=== PATIENT | male | born 1955 | race African-American/Black ===

== ENCOUNTER 2019-08-30 14:28 | Outpatient (CLI) | payer OTHER, MEDICARE, SELFPAY ==
--- NOTE | ~2019-08-30 | XR_ITS ---
EXAMINATION: XR barium swallow modified DATE: 08/30/2019 15:15 INDICATION: Dysphagia. TECHNIQUE: The patient was given barium-containing material of multiple consistencies to swallow by t yanni speech pathologist while I performed fluoroscopy. Fluoroscopy exposure time was 2.3 minutes. The n umber of fluoroscopy images saved to the PACS was 1. Dose-area product was 2.69 Gy-cm^2. FINDINGS: There was intermittent flash laryngeal penetration. No aspiration. IMPRESSION: 1. Intermittent flash laryngeal penetration. No aspiration. 2. Please refer to the speech therapy report for recommendations. Reviewed, dictated and finalized at location A. E MANAGER
--- NOTE | 2019-08-30 16:30 | STOPEVAL ---
MODIFIED BARIUM SWALLOW EVALUATION: Thank you for referring this patient to [facility] [place]. Admitting Provider: Attending Provider: German Jara MD Referring Provider: CLEMENT Outpatient Evaluation Start: 08/30/19 16:07 Freq: Status: Active Protocol: Document 08/30/19 15:08 BECHERERT (Rec: 08/30/19 16:30 BECHERERT [id number]) Therapy Assessment Status Assessment Status Assessment Status Evaluation Outpatient Past Medical History Neurological History Hx Other Neurological Disorders Yes: TBI 12/2018 Respiratory History Hx Tracheostomy Yes: pt removed 08-26-2019 Gastrointestinal History Hx Other Gastrointestinal Disorders Yes: PEG tube r/t TBI Evaluation Information Problem Diagnosis dysphagia r/t TBI Onset 12/2018 Additional Evaluation Detail Reportedly, pt suffered a TBI (via fall) in December of 2018. Pt was subsequently in a coma for 4 months & vent 6-8 weeks. Pt had tracheostomy until 08-25. Pt still has PEG tube. Pt recurrently resides in a NH. Pain Assessment Timing of Pain Assessment Timing of Pain Assessment Assessment Pain Scale Pain Scale Used Bay-Rodriguez (FACES) Bay-Rodriguez Bay-Frias Pain Scale No Pain Pain Score Pain Score No Pain: Bay Frias Modified Barium Swallow Evaluation Recent Swallowing History Reports Dysphagia Yes: NPO since TBI Duration of Dysphagia 7-8 months Other Related History tracheostomy removed by pt 08-25 History of Pneumonia No Reported Difficult Consistencies Unable to Identify Intake Method Prior to Swallow Gastrostomy,NPO Evaluation Dentition Comments missing teeth Consistency Thin Uncontrolled 2 Method of Presentation Straw Oral Preparatory Symptoms Within Functional Limits Oral Phase Symptoms Within Functional Limits Pharyngeal Phase Symptoms Within Functional Limits Severity of Vallecular Residue None - 0% No Residue Severity of Pyriform Sinus Residue None - 0% No Residue 8 Point Laryngeal Penetration-Aspiration Material Enters the Airway, Scale Remains Above Vocal Folds, is Ejected Cervical/Esophageal Symptoms Within Functional Limits Thin Uncontrolled 1 Method of Presentation Cup Oral Preparatory Symptoms Within Functional Limits Oral Phase Symptoms Within Functional Limits Oral Phase Comments took large amount; swallowed in two portions Pharyngeal Phase Symptoms Within Functional Limits Severity of Vallecular Residue None - 0% No Residue Severity of Pyr
== END 2019-08-30 14:29 | disposition home or self-care (01) ==
LOC: ANHIMG 14:45
PROVIDERS: PCP Family Medicine; Visit Provider Family Medicine
DX: J96.00 Acute respiratory failure, unspecified whether with hypoxia or hypercapnia (principal); R13.12 Dysphagia, oropharyngeal phase; S06.5X9D Traumatic subdural hemorrhage with loss of consciousness of unspecified duration, subsequent encounter
CPT/HCPCS: 92611

== ENCOUNTER 2019-12-23 12:57 | Inpatient (IN) | payer MEDICARE, MEDICAID, SELFPAY ==
[2019-12-23] VITALS (46 sets, daily range): BP systolic 60–112; BP diastolic 28–94; PULSE 30–82; RESP 13–24; TEMP 30.6–35; O2SAT 95–100; BMI 26.9
--- NOTE | 2019-12-23 | ECG_ITS ---
Measurements Intervals [place] Rate: 32 P: 24 W[place]: 265 QRS: -9 QRSD: 110 T: -3 QT: 528 QTc: 387 Interpretive Statements SINUS OR ECTOPIC ATRIAL BRADYCARDIA WITH FIRST DEGREE AV BLOCK BORDERLINE T WAVE ABNORMALITY- INFERIOR LEADS BASELINE ARTIFACT- V3-V5 ABNORMAL ECG Electronically Signed On 12-23-2019 17:07:38 CDT by Velasquez Palomino D.O.
--- NOTE | ~2019-12-23 | XR_ITS ---
EXAMINATION: XR chest 1V portable DATE: 12/24/2019 06:21 INDICATION: Shock TECHNIQUE: frontal view of the chest was obtained. COMPARISON: Chest radiograph dated 12/23/2019 FINDINGS: Catheter projecting over the right neck, chest and upper abdomen likely representing a ventriculoperi toneal shunt. Likely transvenous pacemaker extending cephalad along the inferior vena cava with dista l tip projecting over the apex of the right ventricle. Opacities in the left lower lung zone which could represent atelectasis and/or pneumonia. No pleural effusion or pneumothorax. Cardiomediastinal silhouette is within normal limits for AP technique. Nayeli ral old right rib fractures. IMPRESSION: 1. Opacities in the left lower lung zone which could represent atelectasis and/or pneumonia. Reviewed, dictated and finalized at location A. IMPRESSION: 1. Opacities in the left lower lung zone which could represent atelectasis and/ or pneumonia.
--- NOTE | ~2019-12-23 | CT_ITS ---
EXAMINATION: CTA brain carotid DATE: 12/23/2019 17:28 INDICATION: Confusion, right-sided neurologic deficit, history of subdural hematoma TECHNIQUE: Computed tomographic angiography (CTA) of the head was performed with 100 mL Omnipaque-350 intravenous contrast. CTA of the neck was performed with intravenous contrast. The dose-length produ ct was 1156.54 mGy-cm. Maximum intensity projection and volume rendered 3D-reconstructions were creat ed by the technologist on a separate workstation. Automated exposure control and iterative reconstruc tion technique were employed. COMPARISON: None. FINDINGS: HEAD CTA: Again noted are changes of prior left craniotomy with a large area of adjacent encephalomal acia involving the left frontal lobe. A right occipital ventriculostomy ends with its tip in the ante rior horn of the right lateral ventricle. There is no intracranial hemorrhage, acute infarction, or a bnormal mass lesion. There is unchanged mild enlargement of the ventricles. There is no abnormal mass effect or midline shift. The basal cisterns are patent. The orbits are normal. The paranasal sinuses , mastoids and calvarium are normal. There is no significant stenosis of the basilar artery or posterior cerebral arteries. There is no si gnificant stenosis of the intracranial internal carotid arteries or the anterior or middle cerebral a rteries. There is expected decreased perfusion in the left frontal lobe in the region of encephalomal acia. The anterior communicating artery and posterior communicating arteries are normal. There is no aneurysm. NECK CTA: There is an 8 mm nodule of the right thyroid lobe. The submandibular and parotid glands are symmetric. There is no lymphadenopathy. There are no masses identified. The vasculature is patent. T he airway is unremarkable. There are no osseous abnormalities. The orbits are unremarkable. The super ior mediastinum is unremarkable. There is 0% stenosis of the proximal right internal carotid artery relative to normal distal artery l umen diameter (NASCET criteria). There is 0% stenosis of the proximal left internal carotid artery re lative to normal distal artery lumen diameter. IMPRESSION: 1. No acute intracranial abnormality. Expected decreased perfusion in the site of left frontal lobe e ncephalomalacia, otherwise normal head CTA. 2. 0% stenosis of the proximal right internal carotid artery relative to normal distal artery lumen d iameter (NASCET criteria). 3. 0% stenosis of the proximal left internal carotid artery relative to normal distal artery lumen di ameter. Reviewed, dictated and finalized at location A. IMPRESSION: 1. No acute intracranial abnormality. Expected decreased perfusion in the site of left frontal lobe encephalomalacia, otherwise normal head CTA. 2. 0% stenosis of the proximal right internal carotid artery relative to normal distal artery lumen diameter (NASCET criteria). 3. 0% stenosis of the proximal left internal carotid artery relative to normal distal artery lumen diameter.
--- NOTE | ~2019-12-23 | US_ITS ---
EXAMINATION: US right upper quadrant EXAM DATE: 12/24/2019 09:06 INDICATION: Elevated liver function tests. TECHNIQUE: Multiple grayscale and Doppler images of the abdomen right upper quadrant were obtained (sandra y a technologist who performed the scan) and subsequently reviewed. There is no prior study for philip fitzpatrick. FINDINGS: The pancreatic head and body are normal in appearance. The pancreatic tail is not visualized. The l iver has normal echogenicity and contour. There are no focal liver lesions identified. There is no evidence of intrahepatic biliary duct dilation. Portal venous flow was seen in the hepatopedal, nor mal direction and has normal Doppler waveform. No right-sided hydronephrosis. Common bile duct measures 4 mm, which is normal. Gallbladder is not identified. IMPRESSION: Unremarkable abdominal ultrasound exam. Reviewed, dictated and finalized at location B.
--- NOTE | ~2019-12-23 | CT_ITS ---
EXAMINATION: CT brain wo con EXAM DATE: 12/23/2019 13:23 INDICATION: Confusion. Stroke protocol. TECHNIQUE: Spiral CT of the head was performed without contrast. Axial, coronal and sagittal images were reviewed. The dose-length product (DLP) for this examination was 681.00 mGy-cm. The exposure w as tailored according to patient size, and iterative reconstruction (ASIR) was used as additional dos e reduction technique. There is no prior study for comparison. FINDINGS: There is large old left sided craniotomy large region of underlying left frontal encephalom alacia from prior injury. There is a right-sided ventricular shunt. Ventricles are mildly dilated out of proportion to sulci, probably from atrophy. No obstructive hydrocephalus suspected. Mild to moder ate microangiopathy. No acute intracranial hemorrhage or extra-axial collections. No CT evidence of a cute stroke. IMPRESSION: 1. No acute intracranial findings. 2. Surgical changes, ventricular shunt. 3. Microangiopathy and atrophy. As per stroke protocol, I called these results to emergency room, discussed with Gertrude Sims MD at 12/23/2019 13:28 CDT . Reviewed, dictated and finalized at location A. IMPRESSION: 1. No acute intracranial findings. 2. Surgical changes, ventricular shunt. 3. Microangiopathy and atrophy. As per stroke protocol, I called these results to emergency room, discussed wit h Gertrude Sims MD at 12/23/2019 13:28 CDT .
--- NOTE | ~2019-12-23 | XR_ITS ---
EXAMINATION: XR chest 1V portable EXAM DATE: 12/23/2019 13:53 INDICATION: Confusion. TECHNIQUE: Portable AP frontal chest x-ray was obtained. There is no prior study for comparison. FINDINGS: The cardiomediastinal silhouette is prominent but magnified on this AP technique. There is pulmonary vascular congestion. No confluent consolidation, pneumothorax or pleural effusion suspected . Difficult to exclude small amount of basilar airspace disease. There are bony degenerative changes . IMPRESSION: No confluent consolidation but difficult to exclude small amount of basilar airspace dis ease. Reviewed, dictated and finalized at location A. IMPRESSION: No confluent consolidation but difficult to exclude small amount o f basilar airspace disease.
[2019-12-23] MEDS: SODIUM CHLORIDE 0.9% IV 1,000 ML 999 ML IV CONT (12:50)
--- NOTE | 2019-12-23 13:08 | ED.NEUROSD ---
HPI - Neuro Symptoms/Deficit General Chief Complaint: Suspected CVA Stated Complaint: code cva Source: EMS Mode of arrival: EMS Limitations: language barrier History of Present Illness HPI Narrative: Patient is a 64-year-old male with a history of traumatic subdural hematoma currently residing at [facility] who was sent to our emergency department today for evaluation of altered mental status. Patient reportedly was noted to have right-sided facial droop, arm weakness and less expressive than normal has noticed by staff at approximately 10 in the morning. Unknown if symptoms occurred at 10 AM or prior to 10 AM. EMS responded to a stroke page out, at the time of arrival to the facility to evaluate the patient, he was bradycardic in the 30s and. Patient had right-sided facial droop, left gaze deviation without any active tracking and was unable to follow commands. Patient unable to provide any history at baseline due to expressive aphasia. Patient was given 2 0.5 mg doses of atropine without improvement in the bradycardia. Per directions over the phone, I instructed them to start external pacing on the patient. When he arrived here he is alert, awake, there is right-sided facial droop, right-sided arm weakness, and gaze deviation to the left. Additional history unable to be obtained from the patient due to mental status. Related Data Allergies Allergy/AdvReac Type Severity Reaction Status Date / Time No Known Allergies Allergy Verified 12/23/19 13:16 Review of Systems Review of Systems: Narrative: Unable to obtain secondary to medical condition, mental status PMFSH Past Medical History Medical History (Updated 12/23/19 @ 19:01 by Gertrude Sims MD) Expressive aphasia Hypertension Seizure Traumatic subdural hematoma Surgical History Surgical History (Updated 12/23/19 @ 16:17 by Nae Campbell MD) History of tracheostomy Family History Family History (Updated 12/23/19 @ 15:04 by Nae Campbell MD) Mother Pacemaker Social History Social History (Updated 12/23/19 @ 15:04 by Nae Campbell MD) Social History: Lives in a IN since his traumatic brain injury Smoking status: Smoker, status unknown Alcohol intake: unknown Substance use: unknown Gender identity (if verbalized by the patient): Male Exam Narrative: Exam Narrative: GENERAL: Awake, alert, left gaze deviation HEAD: Traumatic craniotomy scar, right-sided facial droop EYES:2+ PERRLA, left gaze deviation, does not cross midline ENT: Nares clear, no rhinorrhea or epistaxis. Mucous membranes moist. NECK: Supple. CHEST: No respiratory distress, breathing even and non labored HEART: Bradycardic rate ABDOMEN:Non distended, non tender EXTREMITIES: No spontaneous movement in the right upper extremity, right lower extremity SKIN: Warm, dry, no rash. NEURO: Right-sided facial droop, left gaze deviation that does not cross midline. Patient is unable to follow simple commands. Left arm does resist gravity. Minimal movement in the left lower extremity. 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 Course Vital Signs Vital signs: Vital Signs Pulse Rate 38 L 12/23/19 12:57 Respiratory Rate 18 12/23/19 12:57 Blood Pressure 112/94 H 12/23/19 12:57 Pulse Oximetry 100 12/23/19 12:57 Temperature 31.8 C L 12/23/19 18:22 Pulse Rate 82 12/23/19 18:22 Respiratory Rate 13 12/23/19 18:22 Blood Pressure 81/63 L 12/23/19 18:22 Pulse Oximetry 99 12/23/19 18:22 Transfer Transfered to: [facility] Hospital Transportation: ALS Transfer rationale: SPecialty unavailable, continuity of care Accepting physician: MD Solitario MDM - Neuro Symptoms/Deficit MDM Narrative Medical decision making narrative: Patient presented via EMS for evaluation of altered mental status, possible CVA. Patient with new, worsening right-sided facial droop. Patient at baseline has expressive aphasia, minimally co
--- NOTE | 2019-12-23 13:10 | PC.NURSE ---
Pacer settings 100 miliamps at 80 bpm per EDP via verbal order readback Per verbal order readback from EDP start dopamine drip at 2mcg/min
[2019-12-23] MEDS: DOPamine 400 MG/D5W 250 ML 400 MG/250 ML BAG 6.7 MG IV CONT (13:23)
[2019-12-23 13:32] LABS: Base Excess ABG -2.1 mEq/l (+/-2.0); Carboxyhemoglobin 0.4 % THb (0-2.0); Device NASAL CANNULA; Fractional Inspired Oxygen 36 %; HCO3 ABG 23.5 mEq/l (22.0-26.0); Methemoglobin ABG 0.3 %THb (0-1.5); Modified Allen's Test Pass; Oxygen Saturation ABG 99.2 % (95.0-100.0); Oxyhemoglobin 98.1 % THb (90.0-100.0); PCO2 ABG 43.1 mmHg (35.0-45.0); PO2 ABG 182.7 mmHg (80.0-100.0); PO2 FiO2 Ratio Arterial Blood 5.07 %; Reduced Hemoglobin 1.2 %THb (0-5.0); Site Drawn RIGHT RADIAL; Total Hemoglobin 13.5 g/dL (12.0-18.0); pH ABG 7.354 (7.350-7.450)
[2019-12-23 14:04] LABS: Basophils Percent Auto 0.3 % (0.2-1.2); Eosinophils Percent Auto 1.1 % (0-4.4); Hematocrit 37.2 % (42.0-52.0); Hemoglobin 12.3 g/dL (14.0-18.0); Immature Platelet Fraction Pct 11.4 % (0.9-11.2); Lymphocytes Absolute Auto 0.66 K/mm3 (0.9-3.2); Lymphocytes Percent Auto 18.7 % (18.3-44.2); Mean Corpuscular HGB Conc 33.1 g/dl (32-36); Mean Corpuscular Hemoglobin 30.3 pg (26-34); Mean Corpuscular Volume 91.6 fl (80-100); Mean Platelet Volume 12.8 fl (7.4-10.4); Monocytes Absolute Auto 0.2 K/mm3 (0.1-0.6); Monocytes Percent Auto 6.8 % (2.6-8.5); Neutrophils Absolute Auto 2.6 K/mm3 (1.3-6.7); Neutrophils Percent Auto 73.1 % (45.5-73.1); Nucleated Red Blood Cells Perc 0.6 % (0.0-0.2); Platelet Count Result 53 k/mm3 (150-375); Red Blood Count 4.06 M/mm3 (4.6-6.20); Red Cell Distribution Width 14.9 % (11.5-14.5); White Blood Count 3.5 K/mm3 (4.5-10.0)
[2019-12-23 14:13] LABS: INR 1.2; Prothrombin Time 15.3 Seconds (11.1-14.7)
[2019-12-23 14:14] LABS: Partial Thromboplastin Time 43.6 SECONDS (22.3-36.8)
[2019-12-23 14:19] LABS: Add Urine Microscopic? YES; Appearance Urine Clear (Clear); Bilirubin Urine Negative (Negative); Color Urine Yellow (Yellow); Glucose Urine UA 1+ mg/dL (Negative); Ketones Urine Negative (Negative); Leukocyte Esterase Ur 2+ LEU/UL (Negative); Nitrate Urine Negative (Negative); Protein Urine Negative (Negative); RBC Urine 0-2 /hpf (0-2); Specific Grav Ur 1.009 (1.001-1.035); Urobilinogen Urine Negative mg/dL (<2.0); WBC Urine 16-20 /hpf
[2019-12-23 14:20] LABS: Blood Urine Negative (Negative)
[2019-12-23 14:24] LABS: Alanine Aminotransferase 190 U/L (4-50); Albumin Level 3.6 g/dL (3.5-5.1); Alkaline Phosphatase 142 U/L (38-126); Aspartate Amino Transferase 193 U/L (17-59); Bilirubin,Total 0.4 mg/dL (0.2-1.3); Blood Urea Nitrogen 18 mg/dL (9-20); CRP 1.8 mg/dL (<1.0); Calcium 8.7 mg/dL (8.4-10.2); Carbon Dioxide 24 mmol/L (22-30); Chloride 109 mmol/L (98-107); Estimated Glomerular Filt Rate > 60; Glucose 67 mg/dL (75-110); Lactate Dehydrogenase 679 U/L (313-618); Potassium 4.7 mmol/L (3.4-5.0); Sodium 139 mmol/L (137-145)
[2019-12-23 14:30] LABS: NT Pro B Type Natriuretic Pept 131 PG/ML (5-100); Troponin I < 0.012 ng/mL (0.000-0.034)
[2019-12-23 14:36] LABS: Amphetamine Screen Urine Negative (Negative); Barbiturate Screen Urine Negative (Negative); Benzodiazepines Screen Urine Negative (Negative); Cannabinoid Screen Urine Negative (Negative); Cocaine Screen Urine Negative (Negative); Methadone Screen Urine Negative (Negative); Opiate Screen Urine Negative (Negative); Phencyclidine Screen Urine Negative (Negative)
--- NOTE | 2019-12-23 14:38 | WPDCN ---
Assessment and Plan Assessment and plan (1) Symptomatic bradycardia: Code(s): R00.1 - Bradycardia, unspecified Status: Acute Assessment and Plan: Patient presents with profound bradycardia not responsive to dopamine, atropine, with an external pacer that is not capturing consistently (and sometimes not at all) despite changing the pacing pads to different configurations at increasing the output. This may be due to sensitivity to carvedilol or intrinsic sinus node disease, less likely to stroke. Ischemia as etiology is unlikely. I agree the patient needs a temporary pacemaker emergently to save his life. Discussed situation with the patient's sister Paola who desires that we proceed (2) Shock: Code(s): R57.9 - Shock, unspecified Status: Acute Assessment and Plan: Probably secondary to poor perfusion related to the bradycardia although there may be another process present such as sepsis. (3) Altered mental status: Qualifiers: Altered mental status type: unspecified Qualified Code(s): R41.82 - Altered mental status, unspecified Code(s): R41.82 - Altered mental status, unspecified Status: Acute Assessment and Plan: Worsening mental status, possibly a stroke. Dr. Stone has talked to the stroke team but [facility] but they do not think he would be a candidate for thrombolytic therapy. 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 Now lives at a alf. HPI Data of Consult Date/Time: 12/23/19 14:38 Primary Care Provider: German Jara MD Consult Narrative Narrative: Joe Yi is a 64 year old male whom I was asked to see emergently by Dr. Stone in the emergency room severe bradycardia. The patient has a history of traumatic brain injury treated at [facility] a couple of years ago. He has history of a tracheostomy and seizures. He lives at a alf and has been able to talk some, and was starting to feed himself. This morning the nurses noted he had a right-sided weakness, less alert than usual and was nonverbal, so he was sent to [facility] ER for possible stroke. On EMS arrival his BP was 80/P and HR 36, unresponsive w/ right facial droop, nonverbal and right side flacidity. No HR response to atropine X2; temporary pacer applied, but is capturing only intermittently. No history of heart disease, just hypertension, seizures and the traumatic brain injury. No history of blood clots or IVC filter that the sister is aware of. Home meds: Mucomyst nebs, amlod 10 g qd, carvedilol 25 mg BID, famotidine 20 mg BID, hydral 37.5 q6H, levetriracetam 1000 mg BID lisinopril 40 mg qd, MVI, senna NaHCO3 2 tabs q6H Hx obtained fr the [employer], Dr. Stone, the pt's sister Carrie who is at the bedside and the MS chart as the pt is nonverbal. Review of Systems Review of Systems: Narrative: Review of system as described in the history obtained from the ER staff and the sister. ROS unobtainable: Yes unobtainable due to medical condition ENT: Reports as per HPI (History of tracheostomy) Cardiovascular: Cardiovascular: Reports no additional cardiovascular complaints Respiratory: Respiratory: Reports no additional respiratory complaints Gastrointestinal: Gastrointestinal: Reports as per HPI (Previously had a G-tube) [facility] Past Medical History Medical History (Updated 12/23/19
--- NOTE | 2019-12-23 14:44 | PC.NURSE ---
Obtained rectal temperature of Pt. and read 88.5 F. EDP notified. No intervention ordered by EDP at this time.
--- NOTE | 2019-12-23 14:50 | PC.NURSE ---
Per Commercial Producer via verbal order readback increased miliamps to 120. Pacing still not capturing every beat.
--- NOTE | 2019-12-23 15:02 | WPDMODSED ---
Moderate Sedation Note-Pt Data Patient Data Diagnosis: Severe bradycardia and hypotension despite 1 L IV fluids, dopamine, atropine External pacer not capturing. Possible CVA H/O traumatic brain injury, sz Present Complaint: Severe bradycardia Procedure to be performed/Plan: Temporary transvenous pacemaker Allergies Allergy/AdvReac Type Severity Reaction Status Date / Time No Known Allergies Allergy Verified 12/23/19 13:16 Current Medications: Active Medications Dopamine HCl/Dextrose (Dopamine 400 Mg/D5w 250 Ml) 400 mg in 250 mls @ 6.713 mls/hr IV CONT .Q24H SUMAN Last Admin: 12/23/19 13:23 Dose: 2 mcg/kg/min, 6.7 mls/hr Documented by: Sedation/Anesthesia: No previous sedation/anesthesia problems (including family history). [facility] Past Medical History Medical History Expressive aphasia Hypertension Seizure Tracheostomy dependent Traumatic subdural hematoma Family History Family History (Updated 12/23/19 @ 15:04 by Nae Campbell MD) Mother Pacemaker Social History Social History (Updated 12/23/19 @ 15:04 by Nae Campbell MD) Social History: Lives in a NH since his traumatic brain injury Smoking status: Smoker, status unknown Alcohol intake: unknown Substance use: unknown Gender identity (if verbalized by the patient): Male Mod Sed Physical Exam Physical Exam Pre Procedural Exam: Normal: Eyes, Ears, Nose, Neck, Airway, Lungs, Heart Size, Heart Rhythm, Abdomen, Extremities and Skin and Variation: Appearance (Chronically ill nonverbal male), Throat (H/O tracheostomy), Heart Rate (bradycardic) and Neuro Exam (rightward gaze, follows no commands) Hours since solid foods: 4 Hours since liquid intake: 4 Internal Medicine - PN: Obj Da Vital Signs Vital Signs: Vital Signs - 24 hr 12/23/19 12:57 12/23/19 13:20 12/23/19 13:23 Temperature Pulse Rate 38 L 80 30 L Respiratory Rate 18 Blood Pressure 112/94 H 66/28 L Pulse Oximetry 100 12/23/19 13:55 12/23/19 13:56 12/23/19 14:00 Temperature Pulse Rate 79 80 79 Respiratory Rate 15 14 14 Blood Pressure 86/55 L Pulse Oximetry 100 100 100 12/23/19 14:01 12/23/19 14:15 12/23/19 14:17 Temperature Pulse Rate 80 81 80 Respiratory Rate 19 24 H 22 H Blood Pressure 82/66 L 65/54 L Pulse Oximetry 100 95 12/23/19 14:18 12/23/19 14:44 Temperature 88.5 F L Pulse Rate 79 Respiratory Rate 19 Blood Pressure 73/51 L Pulse Oximetry 100 EKG = sinus anthony HR 60's Intake/Output Intake/Output: Intake & Output 12/20/19 12/21/19 12/22/19 12/23/19 23:59 23:59 23:59 23:59 Intake Total 1000 Balance 1000 Meds/Results Medications: Active Medications Generic Name Dose Route Start Last Admin Trade Name Freq PRN Reason Stop Dose Admin Dopamine HCl/Dextrose 400 mg in 250 mls @ 6.713 mls/hr 12/23/19 13:55 12/23/19 13:23 Dopamine 400 Mg/D5w 250 Ml IV CONT 2 mcg/kg/min .Q24H SUMAN 6.7 mls/hr Administration 2 MCG/KG/MIN Radiology Results: ITS Impressions Head CT 12/23/19 13:24 IMPRESSION: 1. No acute intracranial findings. 2. Surgical changes, ventricular shunt. 3. Microangiopathy and atrophy. As per stroke protocol, I called these results to emergency room, discussed with Gertrude Sims MD at 12/23/2019 13:28 CDT . Chest X-Ray 12/23/19 13:57 IMPRESSION: No confluent consolidation but difficult to exclude small amount of basilar airspace disease. Labs CBC & Chem 7: 12/23/19 13:57 12/23/19 13:57 Labs: Laboratory Results - last 24 hr 12/23/19 12/23/19 12/23/19 13:03 13:57 13:57 WBC 3.5 L RBC 4.06 L Hgb 12.3 L Hct 37.2 L MCV 91.6 MCH 30.3 MCHC 33.1 RDW 14.9 H Plt Count 53 L MPV 12.8 H Immature Gran % (Auto) 0.0 Neut % (Auto) 73.1 Lymph % (Auto) 18.7 [place] % (Auto) 6.8 Eos % (Auto) 1.1
--- NOTE | 2019-12-23 15:09 | PC.NURSE ---
Patient to carpenter labor supervisor at 1506.
--- NOTE | 2019-12-23 15:46 | P.OP_ITS ---
Procedure Note - Detailed Date of procedure: 12/23/19 Pre-op diagnosis: code cva Severe symptomatic bradycardia Shock Possible stroke Post-op diagnosis: same Procedure performed: Placement of a temporary transvenous pacemaker Description of procedure: The patient was taken from the ER to the cardiac catheterization lab emergently, hypotensive with a systolic blood pressure of 60 mmHg, with an external pacemaker which was not capturing. During the case he was given another L of normal saline and the dopamine was increased to 4 mics. His O2 sat surprisingly remained 100%. The right femoral area was prepped and draped and anesthetized with 1% lidocaine. The right femoral vein was punctured and cannulated with a 6 Uzbek sheath. A balloon tipped pacemaker was advanced up into the right atrium, prolapsed through the tricuspid valve and advanced the right ventricular apex. The patient had suitable capture with a threshold of < 1 volt. The balloon was assisted deflated. The settings of the temporary wire were left at 3 volts, pacing rate 80. Blood pressure at the completion of the case was 92 systolic, 104 mmHg on leaving the senior label specialist. Anesthesia: local Surgeon: Nae Campbell MD Estimated blood loss (mL): 3 IV fluids (mL): 1,000 Drains: No Pathology: none sent Complications: No immediate complications Condition: critical Disposition: other ( Patient will be transferred back to the ER, with plans to transfer to [facility])
--- NOTE | 2019-12-23 16:25 | PC.NURSE ---
Per kamaljitbo from EDP. hang bag of NS at TKO rate with dopamine.
--- NOTE | 2019-12-23 17:15 | PC.NURSE ---
Pt. taken to CT via RN on monitor.
--- NOTE | 2019-12-23 17:25 | PC.NURSE ---
Pt. back from CT via RN
[2019-12-23 18:18] LABS: Lactic Acid Reflex 0.7 mmol/L (0.7-2.1)
[2019-12-23] MEDS: NOREPINEPHRINE 8 MG/D5W 250 ML 8 MG/250 ML BAG 9.4 MG IV CONT (18:37)
[2019-12-23 20:09] LABS: Troponin I 0.091 ng/mL (0.000-0.034)
[2019-12-23] MEDS: SODIUM CHLORIDE 0.9% IV 1,000 ML 150 ML IV CONT (20:22)
--- NOTE | 2019-12-23 21:00 | PM.IMHP ---
H&P: HPI History of Present Illness Chief complaint: Suspected CVA. Narrative: Joe Yi is an unfortunate 64-year-old male with history of traumatic subdural hematoma, seizures, and hypertension who presented to the emergency department earlier today via EMS from [facility] for evaluation of a suspected CVA. The patient is not able to provide me with any history given his clinical condition, and as such all of the following is obtained via a review of his electronic medical records as well as discussions with his sister, Carrie, who is at bedside. In December 2008 he suffered a traumatic subdural hematoma in which she underwent craniotomy with clot evacuation and subsequent NURSES SUPERINTENDENT shunt. According to Gabriela, he ?had to learn how to do everything again.? He is not able to walk and is wheelchair and bedbound. It sounds as though he does have movement with his upper extremities and within the last 6 weeks he was able to have his G-tube removed as he passed his swallowing test and in fact he was able to feed himself somewhat, with minimal assistance. He does recognize his sister and was able to speak with her somewhat but does have expressive aphasia. Due to COVID-19, she has not been able to see her brother, but prior to August she visited him daily. All was well per update received yesterday. Reportedly he was last seen in his usual state at 10:00, and not long prior to arrival to the emergency department he was found slumped over in his chair at the table, with right-sided facial droop and arm weakness. On arrival to the emergency department he was bradycardic in the 30s and was noted to have a right-sided facial droop and left gaze deviation. He was given atropine 0.5 milligrams x 2 without improvement in his rate and he was started on external pacing however was not capturing. He is now status post temporary transvenous pacemaker per Dr. Campbell and he is on both dopamine and levothyroxine to maintain his blood pressures. Given his complex medical status, who was recommended per the splicer apprentice that he be transferred to [facility] where he has had his previous care. Unfortunately, a medical ICU bed is not available at this time and thus he is being admitted to our facility in the antrum. At the time my evaluation he appears to be having active seizures with nystagmus and myoclonus of the upper extremities. He is not responsive to voice or painful stimuli. Review of Systems Review of Systems: Narrative: Unobtainable as the patient is currently unresponsive. [facility] Past Medical History Medical History (Updated 12/24/19 @ 00:29 by Farhana Lozada PA-C) Alcoholism Hypertension Seizure Traumatic subdural hematoma (~12/2018) Requiring craniotomy and clot evacuation. Surgical History Surgical History (Updated 12/24/19 @ 00:24 by Farhana Lozada PA-C) History of gastrostomy tube placement History of tracheostomy History of ventriculoperitoneal shunting Family History Family History (Updated 12/24/19 @ 00:24 by Farhana Lozada PA-C) Mother Pacemaker Father Acute myocardial infarction Social History Social History (Updated 12/24/19 @ 00:25 by Farhana Lozada PA-C) Social History: Healthcare power of survey chief: Carrie Sahas, sister. Code status: Full code. Smoking status: Never smoker Alcohol intake: former Alcohol use details: Patient is a former, chronic alcoholic. Substance use: never Additional living arrangements comments: Patient has been a resident at [facility] for the past year. Additional occupation/education comments: On disability. He is a and was in the [employer]. Gender identity (if verbalized by the patient): Male Spiritual care concerns: No Meds Home Medications and Allergies Home Medications Medication Instructions Recorded Confirmed Type acetaminophen [Tylenol] 500 mg PO TID 12/23/19 12/23/19 Histor
--- NOTE | 2019-12-23 21:21 | ADMGEN ---
This patient, Joe Yi, was admitted to Intensive Care Unit-8. Patient/family oriented to hospital policies and general routines including ID bracelet, bed and alarms, visiting hours, pain management, procedures, bathroom and other care routines, personal items, smoking policy, room service/diet, and visiting hours. Valuables list has been completed. Information on how to activate the Rapid Response Team has been discussed. Patient/Family are encouraged to report perceived risks to care and to ask questions if they do not understand what they are told or what they should do.
[2019-12-23] MEDS: levETIRAcetam 1000MG/NACL100ML 1,000 MG/100 ML BAG 400 MG IVPB (22:57)
[2019-12-23] MEDS: DEXTROSE 50% 25 GM/50 ML SYRINGE (23:31)
[2019-12-23 23:42] LABS: Glucose Point of Care 122 (65-105)
[2019-12-23 23:42] LABS: Glucose Point of Care 58 (65-105)
[2019-12-24] VITALS (24 sets, daily range): BP systolic 71–120; BP diastolic 50–77; PULSE 82–852; RESP 20–34; TEMP 35.2–37.3; O2SAT 90–100
[2019-12-24] MEDS: SODIUM CHLORIDE 0.9% IV 1,000 ML 150 ML IV CONT ×3 (04:41→17:21)
[2019-12-24 05:08] LABS: Basophils Percent Auto 0.2 % (0.2-1.2); Eosinophils Percent Auto 0.4 % (0-4.4); Hematocrit 36.1 % (42.0-52.0); Hemoglobin 12.1 g/dL (14.0-18.0); Immature Granulocyte Absolute 0.03 K/mm3 (0.00-0.031); Immature Granulocyte Percent A 0.7 % (0-0.5); Immature Platelet Fraction Pct 9.2 % (0.9-11.2); Lymphocytes Absolute Auto 0.63 K/mm3 (0.9-3.2); Mean Corpuscular HGB Conc 33.5 g/dl (32-36); Mean Corpuscular Hemoglobin 30.3 pg (26-34); Mean Corpuscular Volume 90.5 fl (80-100); Mean Platelet Volume 12.3 fl (7.4-10.4); Monocytes Absolute Auto 0.5 K/mm3 (0.1-0.6); Monocytes Percent Auto 10.2 % (2.6-8.5); Neutrophils Absolute Auto 3.3 K/mm3 (1.3-6.7); Neutrophils Percent Auto 74.5 % (45.5-73.1); Platelet Count Result 52 k/mm3 (150-375); Red Blood Count 3.99 M/mm3 (4.6-6.20); White Blood Count 4.5 K/mm3 (4.5-10.0)
[2019-12-24 05:18] LABS: INR 1.3; Prothrombin Time 15.7 Seconds (11.1-14.7)
[2019-12-24 05:19] LABS: Lactic Acid 0.7 mmol/L (0.7-2.1); Partial Thromboplastin Time 43.9 SECONDS (22.3-36.8)
[2019-12-24 05:21] LABS: Alanine Aminotransferase 170 U/L (4-50); Albumin Level 3.3 g/dL (3.5-5.1); Alkaline Phosphatase 157 U/L (38-126); Aspartate Amino Transferase 138 U/L (17-59); Bilirubin,Total 0.4 mg/dL (0.2-1.3); Blood Urea Nitrogen 17 mg/dL (9-20); Calcium 8.5 mg/dL (8.4-10.2); Carbon Dioxide 24 mmol/L (22-30); Chloride 111 mmol/L (98-107); Creatine Kinase 321 U/L (55-170); Estimated CRCL calculation 91 ml/min; Estimated Glomerular Filt Rate > 60; Glucose 66 mg/dL (75-110); Lactate Dehydrogenase 459 U/L (313-618); Magnesium 1.7 mg/dL (1.6-2.3); Phosphorus 3.4 mg/dL (2.5-4.5); Potassium 4.5 mmol/L (3.4-5.0); Sodium 140 mmol/L (137-145)
[2019-12-24 06:02] LABS: Glucose Point of Care 85 (65-105)
[2019-12-24 06:44] LABS: Vitamin B12 > 1000.0 pg/mL (239-931)
--- NOTE | 2019-12-24 08:08 | PM.IMPN ---
Progress Note: A&P Assessment and Plan (1) Shock: Code(s): R57.9 - Shock, unspecified Status: Acute Assessment and Plan: Likely cardiogenic shock related to the bradycardia but cannot exclude sepsis. Sepsis appears less likely given the normal white count and no fevers. Chest x-ray on admission showing no acute findings a repeat chest x-ray showing left lower lobe infiltrate. UA noted. Urine and blood cultures are pending. Continue IV antibiotics. He remains on dopamine and norepinephrine. Wean pressors as blood pressure tolerates. 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 (2) Symptomatic bradycardia: Code(s): R00.1 - Bradycardia, unspecified Status: Acute Assessment and Plan: Patient with profound symptomatic bradycardia not responsive to atropine or dopamine. External pacer was not capturing consistently and thus a temporary transvenous pacemaker was placed emergently per Dr. Campbell. Patient being continually paced at this time. Patient remaining hemodynamically stable. Etiology of the bradycardia is unclear but complicated by the Coreg. TSH normal. Appreciate Cardiology input. (3) Altered mental status: Qualifiers: Altered mental status type: unspecified Qualified Code(s): R41.82 - Altered mental status, unspecified Code(s): R41.82 - Altered mental status, unspecified Status: Acute Assessment and Plan: Patient found slumped over with right sided facial droop and arm weakness. In the ER, patient had right-sided facial droop, left gaze deviation without any active tracking and was unable to follow commands. Possible status epilepticus, CVA and/or related to the bradycardia (HR in the 30's in ER). Underlying infection also being considered. CT brain showing no acute findings. CTA of head/neck also showing no acute findings. Obtain brain MRI when stable or may need repeat CT of the brain in 1-2 days. (4) Seizure: Code(s): R56.9 - Unspecified convulsions Status: Acute Assessment and Plan: Patient may have sustained a seizure related to bradycardia. Currently on Keppra 500mg IV Q12hr but [facility]. Will advance dose. (5) Elevated troponin: Code(s): R79.89 - Other specified abnormal findings of blood chemistry Status: Acute Assessment and Plan: Troponin to 0.57. Showing bradycardia with a heart rate of 32 and borderline inferior T-wave changes. Most likely related to above. Echo pending. (6) Pancytopenia: Code(s): D61.818 - Other pancytopenia Status: Acute Assessment and Plan: Patient with pancytopenia admission. White count normal now. Platelet count low but stable and 52,000. Mildly anemic. This could be related to the Keppra. Will follow. (7) Elevated LFTs: Code(s): R79.89 - Other specified abnormal findings of blood chemistry Status: Acute Assessment and Plan: LFTs elevated admission. Most likely due shock liver from the bradycardia. Levels already trending downward. Continue to monitor. 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 Did have trach at one point. G-tube removed 6 weeks ago since passing a swallowing evaluation. Patient at baseline has expressive aphasia. He is able to feed himself with minimal assistance. He is not able to walk and is wheelchair and bedbound. He is a modified code per family. (9) Hypertension: Code(s): I10 - Essential (primary) hypertension Status: Acute Assessment and Plan: Patient with hx of HTN on Coreg, Norvasc, lisinopril and hydralazine at [facility]. These are on hold related to above. Subjective Date/time seen: 12/24/19 08
--- NOTE | 2019-12-24 08:20 | PM.PNCARD ---
Progress Note: A&P Assessment and Plan (1) Symptomatic bradycardia: Code(s): R00.1 - Bradycardia, unspecified Status: Acute Assessment and Plan: Patient presents with profound bradycardia not responsive to dopamine, atropine, with an external pacemaker that is not capturing consistently. status post temporary pacing wire. This may be due to sensitivity to carvedilol or intrinsic sinus node disease, less likely to stroke. Ischemia as etiology is unlikely. awaiting for a bed at [facility] (2) Shock: Code(s): R57.9 - Shock, unspecified Status: Acute Assessment and Plan: Probably secondary to poor perfusion related to the bradycardia although there may be another process present such as sepsis. (3) Altered mental status: Qualifiers: Altered mental status type: unspecified Qualified Code(s): R41.82 - Altered mental status, unspecified Code(s): R41.82 - Altered mental status, unspecified Status: Acute Assessment and Plan: Worsening mental status, possibly a stroke. 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 Stone has talked to the stroke team but [facility] but they do not think he would be a candidate for thrombolytic therapy. 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 Now lives at a [facility]. Subjective Date/time seen: Date of service 12/24/19 08:20 Interval history: 64yo male with hx of TBI here for suspected CVA and found to be in shock with symptomatic bradycardia. Patient asleep but opens eyes to voice. He appears to be nonverbal and does not follow commands. Patient with temporary transvenous pacemaker in place and capturing. Currently on Dopamine and Levophed. 12/23- Continues to pace at 80 beats per minute..COVID rule out pending. Review of Systems Review of Systems: ROS unobtainable: Yes unobtainable due to medical condition ENT: Reports as per HPI (History of tracheostomy) Cardiovascular: Cardiovascular: Reports no additional cardiovascular complaints Respiratory: Respiratory: Reports no additional respiratory complaints Gastrointestinal: Gastrointestinal: Reports as per HPI (Previously had a G-tube) Exam Narrative: Exam Narrative: Ill-appearing male , leftward gaze, eyes open, not responding to questions, occasionally will look at examiner. The external pacemaker is at high energy level but not capturing most of the time. Chest muscle contractions noted from the pacemaker Const: General: in distress and uncomfortable HENMT: General nose exam: no epistaxis Mouth: Yes moist mucous membranes Eyes: Sclera: scleral abnormality (Injected) EOM: EOM not intact bilaterally Neck: Neck: no JVD Thyroid: thyroid normal Other: Old tracheostomy scar Resp: Effort & Inspection: normal respiratory effort Auscultation: clear to auscultation bilaterally Other: Difficult exam Cardio: Rate: bradycardic Rhythm: regular rhythm Heart sounds: no murmurs Other: Difficult exam GI: Inspection: non-distended : Male General Exam: Yes normal external exam Other: Adult diaper on Back/Spine/Pelvis: Back: other (Might have some kyphosis, might have some contractions of the lower extremi) Skin: General skin exam: normal color and no rashes or lesions noted Neuro: Cognition (Neuro): abnormal cognition Extrem: Right lower
--- NOTE | 2019-12-24 08:45 | PC.NURSE ---
Addendum entered by Nori Reyes RN 12/24/19 09:21: Pulse at 0845 was 82, charted incorrectly as 852, unable to edit Original Note: Levophed was infusing at rate of 3mcg.min when RN entered room. Dopamine placed on standby by order.
--- NOTE | 2019-12-24 09:09 | WPDCNINT ---
Assessment and Plan Assessment and plan (1) Shock: Code(s): R57.9 - Shock, unspecified Status: Acute Assessment and Plan: could be related to septic shock has patient was hypothermic, h/o seizures, thrombocytopenia, elevated liver enzymes -lactic acids have been normal -patient was given adequate IV fluids -urine out put has been adequate -liver enzymes trending down -body temperature has normalized - continue cefepime and vanco -cultures obtained and pending -remains on doapmine and levophed maintain MAP > 65 mmHg (2) Seizure: Code(s): R56.9 - Unspecified convulsions Status: Acute Assessment and Plan: h/o Sz, had seizure activity last evenig, received loading dose of Keppra 1000 mg IV x1 - restarted home dose Keppra - (3) Symptomatic bradycardia: Code(s): R00.1 - Bradycardia, unspecified Status: Acute Assessment and Plan: Pt with symptomatic bradycardia did not respond to atropine, external pacers were not capturing consistently on a temporary transvenous pacemaker was placed by the ambulatory technologist the day of admission. -patient remains continue sleep paced at this time hemodynamics have improved and pressors are being weaned. -could be related to Coreg, TSH is normal -cardiology following the patient (4) Altered mental status: Qualifiers: Altered mental status type: unspecified Qualified Code(s): R41.82 - Altered mental status, unspecified Code(s): R41.82 - Altered mental status, unspecified Status: Acute Assessment and Plan: Altered mental status could be related to possible CVA, bradycardia, infection-UTI, seizures. -CT head was negative for any intracranial bleed acute intracranial injury -CTA of the brain and carotids with no acute findings. -MRI when stable. 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 Patient did have a tracheostomy and PEG tube placed at that time. G-tube was removed 6 weeks prior to admission as he passed a swallow evaluation. Has expressive aphasia at baseline. (6) History of hypertension: Code(s): Z86.79 - Personal history of other diseases of the circulatory system Status: Acute Assessment and Plan: History of essential hypertension, on Coreg, amlodipine, lisinopril and hydralazine. Continue to hold all antihypertensives secondary to shock and pressor requirement (7) Elevated LFTs: Code(s): R79.89 - Other specified abnormal findings of blood chemistry Status: Acute Assessment and Plan: Elevated LFTs likely related to shock a bradycardia, hypotension -LFTs trending down will continue to monitor (8) Elevated troponin: Code(s): R79.89 - Other specified abnormal findings of blood chemistry Status: Acute Assessment and Plan: Troponin elevation secondary to bradycardia, shock, likely ischemic demand. EKG showed inferior T-wave changes -echocardiogram has been ordered to evaluate for wall motion abnormalities -continue to monitor (9) Thrombocytopenia: Code(s): D69.6 - Thrombocytopenia, unspecified Status: Acute Assessment and Plan: Thrombocytopenia could be related to shock -patient with leukopenia and thrombocytopenia which could also be related to Keppra, will obtain Keppra levels -continue to monitor (10) DVT prophylaxis: Code(s): Z29.9 - Encounter for prophylactic measures, unspecified Status: Acute Assessment and Plan: SCDs, no chemoprophylaxis due to thrombocytopenia Additional Plan Discussed with sister and updated with patient's condition plan of care Code status: No intubation, no CPR, okay for medications Critical care time spent: 44 minutes Due to a high probability
[2019-12-24] MEDS: levETIRAcetam 1000MG/NACL100ML 1,000 MG/100 ML BAG 400 MG IVPB ×2 (09:13→20:57)
[2019-12-24] MEDS: DEXTROSE 50% 25 GM/50 ML SYRINGE IV PUSH ×2 (11:50→17:20)
[2019-12-24 12:34] LABS: Glucose Point of Care 64 (65-105)
[2019-12-24 12:34] LABS: Glucose Point of Care 123 (65-105)
[2019-12-24 18:38] LABS: Glucose Point of Care 66 (65-105)
[2019-12-24 18:38] LABS: Glucose Point of Care 124 (65-105)
[2019-12-24 18:54] LABS: SARS-CoV-2 RNA PCR Negative
--- NOTE | 2019-12-24 19:11 | PC.NURSE ---
Dr. Gonzalez of patient Covid-19 results
--- NOTE | 2019-12-25 00:01 | PC.NURSE ---
Transferred to [facility] per [facility] at 2358 on 12/24/19. Report given to Jana WATTERS at receiving hospital.
[2019-12-27 18:49] LABS: Levetiracetam Keppra 15.7 mcg/mL (12.0-46.0)
--- NOTE | 2019-12-28 18:16 | PM.TDS ---
Transfer Discharge Sum: Prov Provider Date of admission: 12/24/19 09:27 Primary care physician: German Jara MD Admitting clinician: Victor Manuel Gonzalez MD Consults: 12/23/19 19:00 Consult to Physician Routine Comment: Consulting Provider: Rob Tomlin Reason for consultation: symptomatic bradycardia, septic shock Has provider been notified: Yes Consult to Physician Routine Comment: Consulting Provider: Nae Campbell Reason for consultation: symptomatic bradycardia Has provider been notified: Yes DS: Admitting Diagnosis Admitting Diagnosis Admitting Diagnosis: Sepsis, unspecified organism DS: Discharge Diagnosis Discharge Diagnosis (1) Shock: Code(s): R57.9 - Shock, unspecified Status: Acute Assessment and Plan: Thought secondary to sepsis. Treated with antibiotics and blood cultures no growth. Maintained on levofed (2) Symptomatic bradycardia: Code(s): R00.1 - Bradycardia, unspecified Status: Acute Assessment and Plan: Cardiology placed temporary transvenous pacer while here. (3) Altered mental status: Qualifiers: Altered mental status type: unspecified Qualified Code(s): R41.82 - Altered mental status, unspecified Code(s): R41.82 - Altered mental status, unspecified Status: Acute Assessment and Plan: Status post previous traumatic brain with aphasia and worsening mental status here thought secondary to shock (4) Pancytopenia: Code(s): D61.818 - Other pancytopenia Status: Acute Assessment and Plan: Possible secondary to sepsis (5) Seizure: Code(s): R56.9 - Unspecified convulsions Status: Acute Assessment and Plan: Chronic not acute finding Transfer Discharge Sum: Med Medications Active and Home Medications: Home Medications acetaminophen [Tylenol] 500 mg PO TID 12/23/19 [History Confirmed 12/23/19] acetylcysteine 3 ml INHALATION Q8H 12/23/19 [History Confirmed 12/23/19] amlodipine 10 mg PO DAILY 12/23/19 [History Confirmed 12/23/19] carvedilol 25 mg PO BID 12/23/19 [History Confirmed 12/23/19] famotidine 20 mg PO BID 12/23/19 [History Confirmed 12/23/19] hydralazine 25 mg PO QID 12/23/19 [History Confirmed 12/23/19] levetiracetam 1,000 mg PO Q12H 12/23/19 [History Confirmed 12/23/19] lisinopril 40 mg PO DAILY 12/23/19 [History Confirmed 12/23/19] sennosides [senna] 8.6 mg PO HS 12/23/19 [History Confirmed 12/23/19] sodium bicarbonate 1,300 mg PO Q8H 12/23/19 [History Confirmed 12/23/19] Transfer Discharge Sum: Hosp Hospital Course Hospital course: Joe Yi is a 64 year old male admitted from [facility] on 12/23/2019. For change in mental status. Found slumped over and 180 EMS arrived his pulse is in the 30s. Given atropine eventually had treat and venous temporary pacer placed for Cardiology here. Start on dopamine further bradycardic and levofed blood pressure. Temperature is noticeably low placed on a Rashmi under to her raise his pressure. Response CV broad-spectrum antibiotics cefepime and vancomycin. Noncontrast CT scan no acute changes. Patient has had care at [facility] before and they were contacted and accepted the patient in transfer. Significantly I am dictating this transfer summary from the electronic medical records. I did not see the patient while an inpatient here. Time Spent with Patient Time attestation: Total time spent providing and/or coordinating transfer services:30 Exam Narrative: Exam Narrative: I did not see the patient to examine him at the time discharge but last recorded blood pressure was 120/60 with a pulse of 80 DS: Data Data Completed and Pending Labs on day of discharge: Labs from last 24 hours 12/23/19 13:57 Levetiracetam 15.7 Preliminary micro results at discharge 12/23/19 17:51 Blood Culture - Preliminary Blood 12/23/19 17:51 Blood Culture - Preliminary Blood
== END 2019-12-25 00:05 | disposition short-term general hospital (02) | DRG 871 ==
LOC: ANHED 19:33 → ANHICU 19:39
PROVIDERS: Internal Medicine Cardiovascular Disease; Physician Assistant; Admitting Provider Internal Medicine; Emergency Provider Emergency Medicine; PCP Family Medicine; Visit Provider Internal Medicine
PROC: 5A1223Z Performance of Cardiac Pacing, Continuous (ICD-10-PCS; CPT 33210; principal; 2019-12-23 14:50)
DX: A41.9 Sepsis, unspecified organism (principal); R65.21 Severe sepsis with septic shock; K72.00 Acute and subacute hepatic failure without coma; R47.01 Aphasia; D61.818 Other pancytopenia; Z20.828 Contact with and (suspected) exposure to other viral communicable diseases; R00.1 Bradycardia, unspecified; R41.82 Altered mental status, unspecified; R29.810 Facial weakness; R56.9 Unspecified convulsions; I10 Essential (primary) hypertension; D69.6 Thrombocytopenia, unspecified; Z87.820 Personal history of traumatic brain injury
CPT/HCPCS: 33210; 36415; 36600; 51701; 70450; 70496; 70498; 71045; 76705; 80053; 80177; 80307; 81001; 82375; 82550; 82607; 82728; 82805; 83050; 83605; 83615; 83735; 83880; 84100; 84443; 84484; 85025; 85055; 85610; 85730; 86140; 87040; 87086; 87088; 87635; 93005; 96365; 96366; 96367; 96368; 96375; 99291; C1894; C9803; G0378; J0461; J0692; J1265; J1953; J3370; J7030; J7040; Q9967; U0003